=== PATIENT | female | born 1980 | race Caucasian/White ===

== ENCOUNTER 2017-04-03 15:49 | Emergency (ER) | payer MEDICAID ==
[2017-04-03] MEDS ORDERED: IBUPROFEN 800 MG TABLET PO ONE (17:21)
[2017-04-03] MEDS ORDERED: CEPHALEXIN 500 MG CAPSULE PO ONE (17:21)
--- NOTE | 2017-04-03 17:27 | ER Document Report ---
ED Extremity Problem, Lower - General Chief Complaint: Toe Injury Stated Complaint: RIGHT PINKI TOE PAIN Time Seen by Provider: 04/03/17 17:11 Mode of Arrival: Ambulatory Information source: Patient Notes: 36-year-old female presents to ED for pain in his right fifth toe for the last 1 -1/2 weeks. She states she was clipping her toenail and the pain has been since then. She has mild redness no drainage to the toe. We'll x-ray the toe to make sure there is no internal infection and treated with antibiotics and ibuprofen. TRAVEL OUTSIDE OF THE [place] IN LAST 30 DAYS: No - HPI Patient complains to provider of: Injury, Pain, Swelling Location: 5th Toe - Right Occurred: Other - 1-1/2 weeks Where: Home Onset/Duration: Persistent Quality of pain: Sharp Severity: Moderate Pain Level: 4 Context: Other - Clipping toe Recent injury: Possibly Associated symptoms: Painful ambulation Exacerbated by: Movement, Walking Relieved by: Nothing - Related Data Allergies/Adverse Reactions: No Known Allergies Allergy (Verified 12/18/14 09:16) Past Medical History - General Information source: Patient - Social History Smoking Status: Never Smoker Frequency of alcohol use: None Drug Abuse: None Occupation: [employer] Lives with: Family Family History: CAD, DM, Hypertension, Malignancy Patient has suicidal ideation: No Patient has homicidal ideation: No - Past Medical History Cardiac Medical History: Reports: None Pulmonary Medical History: Reports: Hx Asthma EENT Medical History: Reports: None Neurological Medical History: Reports: Hx Migraine Endocrine Medical History: Reports: None Renal/ Medical History: Reports: None Malignancy Medical History: Reports: None GI Medical History: Reports: None Musculoskeltal Medical History: Reports Hx Musculoskeletal Deformity, Reports Hx Musculoskeletal Trauma Skin Medical History: Reports None Psychiatric Medical History: Reports: None Traumatic Medical History: Reports: Hx Fractures - Both feet elbow knee Infectious Medical History: Reports: None Past Surgical History: Reports: Hx Oral Surgery, Hx Tubal Ligation - Clamped - Immunizations Immunizations up to date: Yes Hx Diphtheria, Pertussis, Tetanus Vaccination: Yes - 02/11/13 Review of Systems - Review of Systems Constitutional: No symptoms reported EENT: No symptoms reported Cardiovascular: No symptoms reported Respiratory: No symptoms reported Gastrointestinal: No symptoms reported Genitourinary: No symptoms reported Female Genitourinary: No symptoms reported Musculoskeletal: Other - Right fifth toe Skin: Other - Erythema to right fifth toe Hematologic/Lymphatic: No symptoms reported Neurological/Psychological: No symptoms reported -: Yes All other systems reviewed and negative Physical Exam - Vital signs Vitals: Temp Pulse Resp BP Pulse Ox 98.2 F 73 18 135/73 H 100 04/03/17 15:53 04/03/17 15:53 04/03/17 15:53 04/03/17 15:53 04/03/17 15:53 Interpretation: Normal - General General appearance: Appears well, Alert - HEENT Head: Normocephalic, Atraumatic Eyes: Normal Pupils: PERRL - Respiratory Respiratory status: No respiratory distress Chest status: Nontender Breath sounds: Normal Chest palpation: Normal - Cardiovascular Rhythm: Regular Heart sounds: Normal auscultation Murmur: No - Abdominal Inspection: Normal Distension: No distension Bowel sounds: Normal Tenderness: Nontender Organomegaly: No organomegaly - Back Back: Normal, Nontender - Extremities General upper extremity: Normal inspection, Nontender, Normal color, Normal ROM , Normal temperature General lower extremity: Normal ROM, Normal temperature, Normal weight bearing. No: Kristine's sign Foot: Tender - Right fifth toe, Edema - Right fifth toe, Other - Right fifth toe Erythema - Neurological Neuro grossly intact: Yes Cognition: Normal Orientation: AAOx4 Katie Coma Scale Eye Opening: Spontaneous [place] Coma Scale Verbal: Oriented Katie Coma Scale Motor: Obeys Commands Katie Coma Scale Total: 15 Speech: Normal Motor strength normal: LUE, RUE, LLE, RLE Sensory: Normal - Psychological Associated symptoms: Normal affect, Normal mood - Skin Skin Temperature: Warm Skin Moisture: Dry Skin Color: Normal Course - Vital Signs Vital signs: Temp Pulse Resp BP Pulse Ox 98.4 F 86 16 128/76 H 98 04/03/17 20:00 04/03/17 20:00 04/03/17 20:00 04/03/17 20:00 04/03/17 20:00 - Diagnostic Test Radiology reviewed: Image reviewed, Reports reviewed Discharge - Discharge Clinical Impression: pain in right 5th toe Condition: Stable Disposition: HOME, SELF-CARE Instructions: Family Physicians / Practices Additional Instructions: You came in for pain in your right fifth toe with some redness and swelling. You state you're toe has been hurting for a week and a half after cutting your nails. There is no drainage noted at this time. You will be started on Keflex which is the antibiotic you'll be encouraged to soak Foot in Epsom salt. You' ll also need to follow-up with a reservoir engineering manager which is a foot doctor if the pain continues. SOAP CLEANSING: Gently wash the wound daily using a mild soap (like Ivory, Phisoderm, Neutrogena). Use warm water, rubbing gently until all debris, ooze, and crusting have been washed from the wound. Allow to dry briefly (about 10 minutes) after cleaning. Repeat this cleansing at least three times a day for the first two days and then once or twice a day. ANTIBIOTIC OINTMENT PROTECTION: Your wounds are such that dressing them is not practical or optional. After cleansing, you should apply a thin coating of antibiotic ointment ( Bacitracin, not Neosporin) to the wounds at least three times daily. This lessens infection risk, and may decrease the amount of scarring. Use a q-tip or dull butter knife, not your finger, to apply this ointment. Any debris or ooze which builds up in the ointment should be gently rubbed off with a sterile gauze pad. Harder crusting may need to be gently scrubbed off with a clean wash cloth with soap and warm water, perhaps applying a warm, wet wash cloth to the wound for ten minutes first. Development of redness, severe itching, or blistering may mean allergy to the ointment. See the doctor. Cephalexin The antibiotic you've been prescribed is a member of the cephalosporin class. This type of antibiotic covers a wide variety of infections, including those of the skin, lungs, and urinary tract. It's useful for staph infections. This antibiotic is slightly similar to the penicillin family. In rare cases , a person who is allergic to penicillin will also be allergic to this medication. If you have had a severe allergic reaction to penicillin, and have not taken this antibiotic since that time, notify your doctor. Antibiotics which cover many germs ("broad spectrum" antibiotics) are more likely to cause diarrhea or "yeast" infections. Women prone to vaginal yeast problems may suffer an attack after taking this antibiotic. In infants, oral thrush (white spots "stuck" on the cheek) or yeast diaper rash may result. See your doctor if these problems occur. Call at once if you develop itching, hives , shortness of breath, or lightheadedness. Epsom Salt Soaks Soak the wound area in a container of warm epsom salt water. If you can't get the wound area into a bucket or rodriguez, use a folded towel soaked in the epsom salt solution and apply to the area. Use clean hot tap water (about the temperature of a very warm bath), mixing in about one (1) teaspoon for every pint of water. Two gallon --> 16 teaspoons Epsom Salts One gallon --> 8 teaspoons Epsom Salts Two quarts --> 4 teaspoons Epsom Salts One quart --> 2 teaspoons Epsom Salts Soak the wound for about 20 minutes while gently moving it around in the water. Repeat this four (4) times a day. FOLLOW-UP CARE: If you have been referred to a physician for follow-up care, call the physician s office for an appointment as you were instructed or within the next two days. If you experience worsening or a significant change in your symptoms, notify the physician immediately or return to the Emergency Department at any time for re-evaluation. Prescriptions: Cephalexin Monohydrate [Keflex 500 mg Capsule] 500 mg PO QID #20 capsule Forms: Elevated Blood Pressure, Return to Work
[2017-04-03 20:01] VITALS: BP 128/76
== END 2017-04-03 20:00 | disposition home or self-care (01) ==
LOC: ER 15:49
DX: S99.921A Unspecified injury of right foot, initial encounter (principal); M79.674 Pain in right toe(s); X58.XXXA Exposure to other specified factors, initial encounter
CPT/HCPCS: 99283

== ENCOUNTER 2017-05-03 14:13 | Emergency (ER) | payer SELFPAY ==
[2017-05-03 14:52] VITALS: BP 147/79
--- NOTE | 2017-05-03 15:39 | ER Document Report ---
HPI - HPI Patient complains to provider of: Itchy rash for 3 days Onset: Other - 3 days Onset/Duration: Gradual, Worse Pain Level: 2 Context: 36-year-old female complaining of a pruritic rash that is spreading over the past 3 days. No fever or chills. Unknown exposures. No tick bite. No travel outside the [place] Associated Symptoms: None Exacerbated by: Denies Relieved by: Denies Similar symptoms previously: No Recently seen / treated by doctor: No - ROS ROS below otherwise negative: Yes Systems Reviewed and Negative: Yes All other systems reviewed and negative - REPRODUCTIVE LMP: 04/16/17 Reproductive: DENIES: : Past Medical History - General Information source: Patient - Social History Smoking Status: Unknown if Ever Smoked Frequency of alcohol use: None Drug Abuse: None Lives with: Family Family History: CAD, DM, Hypertension, Malignancy Patient has suicidal ideation: No Patient has homicidal ideation: No Pulmonary Medical History: Reports: Hx Asthma Neurological Medical History: Reports: Hx Migraine Renal/ Medical History: Denies: Hx Peritoneal Dialysis Musculoskeltal Medical History: Reports Hx Musculoskeletal Deformity, Reports Hx Musculoskeletal Trauma Traumatic Medical History: Reports: Hx Fractures - Both feet elbow knee Past Surgical History: Reports: Hx Oral Surgery, Hx Tubal Ligation - Clamped - Immunizations Immunizations up to date: Yes Hx Diphtheria, Pertussis, Tetanus Vaccination: Yes - 02/11/13 Vertical Provider Document - CONSTITUTIONAL Agree With Documented VS: Yes Exam Limitations: No Limitations General Appearance: No Apparent Distress - INFECTION CONTROL TRAVEL OUTSIDE OF THE [place] IN LAST 30 DAYS: No - HEENT HEENT: Normocephalic - NECK Neck: Supple - RESPIRATORY Respiratory: Breath Sounds Normal, No Respiratory Distress O2 Sat by Pulse Oximetry: 100 - CARDIOVASCULAR Cardiovascular: Regular Rate, Regular Rhythm - NEURO Level of Consciousness: Awake, Alert, Appropriate - DERM Integumentary: Rash - Inflamed papular and scalingnred rash on the waist, axilla , Course - Vital Signs Vital signs: Temp Pulse Resp BP Pulse Ox 98.3 F 83 18 147/79 H 100 05/03/17 14:51 05/03/17 14:51 05/03/17 14:51 05/03/17 14:51 05/03/17 14:51 Discharge - Discharge Clinical Impression: Dermatitis Condition: Good Disposition: HOME, SELF-CARE Instructions: Corticosteroid Medication ([facility]), Atopic Dermatitis (Eczema) ([facility]) Additional Instructions: shower, while skin is still wet, apply Aquaphor ointment to cover the skin aND TRAP IN THE MOISTURE continue benadryl for the itching dove unscented soap, scent and dye free detergent, no dryer sheet see server security administrator if persists Please complete the patient satisfaction survey if you get one, and return it.. If you do not receive a survey, then you can go to the [facility] website, [email or web address] and place your comments about your very good care. Thank you very much. It was a pleasure being your medical provider today. Prescriptions: Prednisone [Deltasone 10 mg Tablet] 10 mg PO ASDIR PRN #21 tablet PRN Reason: Referrals: BHARAT MCKEON, [ACTIVE STAFF] - Follow up as needed
== END 2017-05-03 16:24 | disposition home or self-care (01) ==
LOC: ER 14:13
DX: L30.9 Dermatitis, unspecified (principal); J45.909 Unspecified asthma, uncomplicated
CPT/HCPCS: 99282

== ENCOUNTER → 2018-04-26 | Outpatient (CLI) | payer MEDICAID ==
--- NOTE | 2018-04-26 13:31 | WOMENS IMAGING REPORT ---
EXAM DESCRIPTION: BILAT SCREENING MAMMO W/CAD COMPLETED DATE/TIME: 04/26/2018 8:09 am REASON FOR STUDY: Z12.31 SCREENING Z12.31 ENCNTR SCREEN MAMMOGRAM FOR MALIGNANT NEOPLASM OF ABBEY COMPARISON: 2008 TECHNIQUE: Standard craniocaudal and mediolateral oblique views of each breast recorded using digita l acquisition. LIMITATIONS: None. FINDINGS: No masses, calcifications or architectural distortion. No areas of suspicion. Read with the assistance of CAD. .[facility] - R2 Cenova Version 1.3 .[facility] - R2 Cenova Version 1.3 .[facility] - R2 Cenova Version 2.4 .[facility] [place] - R2 Cenova Version 2.4 .[facility] - R2 Pulp Tester Version 9.2 IMPRESSION: NORMAL MAMMOGRAM. BIRADS 1. BREAST DENSITY: b. There are scattered areas of fibroglandular density. BIRAD: 1 NEGATIVE RECOMMENDATION: ROUTINE SCREENING COMMENT: The patient has been notified of the results by letter per MQSA requirements. Additional no tification policies are in place for contacting patient with suspicious or incomplete findings. Quality ID #[id number]: The [employer] recommends an annual screening mammogram for women aged 40 years or over. This facility utilizes a reminder system to ensure that all patients receive reminder letters, and/or direct phone calls for appointments. This includes reminders for routine scr eening mammograms, diagnostic mammograms, or other Breast Imaging Interventions when appropriate. Th is patient will be placed in the appropriate reminder system. The [employer] (ACR) has developed recommendations for screening MRI of the breast s in certain patient populations, to be used in conjunction with mammography. Breast MRI surveillanc e may be appropriate for women with more than 20% lifetime risk of developing breast cancer as deter mined by genetic testing, significant family history of the disease, or history of mantle radiation f or Hodgkins Disease. ACR Practice Guidelines 2008. TECHNICAL DOCUMENTATION: FINDING NUMBER: (1) ASSESSMENT: (1) JOB ID: [id number] [employer]- All Rights Reserved Reading location - IP/workstation name: [email or web address]
== END ==
LOC: WI 08:24
PROVIDERS: ATTEND Nurse Practitioner Family
DX: Z12.31 Encounter for screening mammogram for malignant neoplasm of breast (principal)
CPT/HCPCS: 77067

== ENCOUNTER 2018-06-06 08:12 | Emergency (ER) | payer SELFPAY ==
--- NOTE | 2018-06-06 09:02 | ER Document Report ---
ED General - General Mode of Arrival: Ambulatory Information source: Patient TRAVEL OUTSIDE OF THE [place] IN LAST 30 DAYS: No <ANDREA SAMSON - Last Filed: 06/06/18 16:07> <JASPER LESTER - Last Filed: 06/06/18 18:05> - General Chief Complaint: Abdominal Pain Stated Complaint: BACK AND STOMACH PAIN Time Seen by Provider: 06/06/18 08:47 Notes: Patient is a 37 year old female presenting to the emergency department complaining of multiple symptoms abdominal pain, back pain, urinary retention, vaginal discharge and a rash. Patient states her abdominal pain is located across her lower abdomen and radiates into her back and further describes it has a cramping. She also states she has had heavy vaginal discharge further stating it feels like she is urinating on herself. Patient states she developed a rash 2 weeks ago describing it as itchy. She states she has been diagnosed with scabies 2x in the past and mentions no other family member linh the rash. 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 (ANDREA SAMSON) - Related Data Allergies/Adverse Reactions: No Known Allergies Allergy (Verified 06/06/18 09:01) Past Medical History - General Information source: Patient - Social History Smoking Status: Never Smoker Cigarette use (# per day): No Chew tobacco use (# tins/day): No Smoking Education Provided: No Frequency of alcohol use: None Family History: CAD, DM, Hypertension, Malignancy Pulmonary Medical History: Reports: Hx Asthma Neurological Medical History: Reports: Hx Migraine Musculoskeletal Medical History: Reports Hx Musculoskeletal Deformity, Reports Hx Musculoskeletal Trauma Traumatic Medical History: Reports: Hx Fractures - Both feet elbow knee Past Surgical History: Reports: Hx Oral Surgery, Hx Tubal Ligation - Clamped - Immunizations Immunizations up to date: Yes Hx Diphtheria, Pertussis, Tetanus Vaccination: Yes - 02/11/13 <ANDREA SAMSON - Last Filed: 06/06/18 16:07> Review of Systems - Review of Systems Constitutional: No symptoms reported EENT: No symptoms reported Cardiovascular: No symptoms reported Respiratory: No symptoms reported Gastrointestinal: See HPI, Abdominal pain Genitourinary: See HPI, Discharge, Retention Female Genitourinary: No symptoms reported Musculoskeletal: No symptoms reported Skin: See HPI, Rash Hematologic/Lymphatic: No symptoms reported Neurological/Psychological: No symptoms reported -: Yes All other systems reviewed and negative <MALIFARIBASANDEEP - Last Filed: 06/06/18 16:07> Physical Exam <MALI,TAMSANDEEP - Last Filed: 06/06/18 16:07> <JASPER LESTER - Last Filed: 06/06/18 18:05> - Vital signs Vitals: Temp Pulse Resp BP Pulse Ox 97.6 F 87 18 139/99 H 99 06/06/18 08:17 06/06/18 08:17 06/06/18 08:17 06/06/18 08:17 06/06/18 08:17 - Notes Notes: GENERAL: Alert, interacts well. No acute distress. HEAD: Normocephalic, atraumatic. EYES: Pupils equal, round, and reactive to light. Extraocular movements intact. ENT: Oral mucosa moist, tongue midline. NECK: Full range of motion. Supple. Trachea midline. LUNGS: Clear to auscultation bilaterally, no wheezes, rales, or rhonchi. No respiratory distress. HEART: Regular rate and rhythm. No murmurs, gallops, or rubs. ABDOMEN: Soft, lower abdominal tenderness to palpation. Non-distended. Bowel sounds present in all 4 quadrants. EXTREMITIES: Moves all 4 extremities spontaneously. No edema, radial and dorsalis pedis pulses 2/4 bilaterally. No cyanosis. NEUROLOGICAL: Alert and oriented x3. Normal speech. PSYCH: Normal affect, normal mood. SKIN: Warm, dry, normal turgor. First-degree sunburn across the anterior aspect of abdomen and bilateral thighs. Excoriation rash across the BUE, BLE and underneath her breasts. PELVIC: Thick white discharge from cervical os. Cervical motion tenderness to palpation. (ANDREA SAMSON) Course - Laboratory Result Diagrams: 06/06/18 09:27 06/06/18 09:27 <ANDREA SAMSON - Last Filed: 06/06/18 16:07> - Laboratory Result Diagrams: 06/06/18 09:27 06/06/18 09:27 <JASPER LESTER - Last Filed: 06/06/18 18:05> - Re-evaluation Re-evalutation: 06/06/18 12:20 CBC unremarkable, CMP unremarkable, urinalysis unremarkable, GC and Chlamydia negative, abdominal exam pelvic exam consistent with PID, wet prep also concerning for bacterial vaginosis, patient will be treated with doxycycline and Flagyl. Rash consistent with scabies, will be treated with permethrin. Discharge to home. (JASPER LESTER) - Vital Signs Vital signs: Temp Pulse Resp BP Pulse Ox 99.3 F 82 16 125/73 100 06/06/18 12:33 06/06/18 12:33 06/06/18 12:33 06/06/18 12:33 06/06/18 12:33 - Laboratory Laboratory results interpreted by me: 06/06/18 06/06/18 06/06/18 09:27 09:27 09:27 Lymphocytes % 10.1 L Glucose 113 H Urine Urobilinogen 2.0 H Discharge <ANDREA SAMSON - Last Filed: 06/06/18 16:07> <JASPER LESTER - Last Filed: 06/06/18 18:05> - Discharge Clinical Impression: PID (acute pelvic inflammatory disease), Bacterial vaginosis, Scabies Condition: Stable Disposition: HOME, SELF-CARE Additional Instructions: Scabies Your exam suggests the presence of scabies, which are microscopic parasites of the skin. These mites gabbie through the skin, causing severe itching. The mite can be spread to other persons by skin contact. All clothing, towels, and bedding should be washed in very hot water, set aside for a week, then washed again. You should apply scabies-killing lotion from the neck down, then wash it off after 12 hours. You may need medication for itching, as the itch persists for many days after the mites have been killed. All family members and close personal contacts should be examined. Repeat treatment may be necessary if the infestation is not eliminated with a single treatment. Call the doctor if you develop increasing swelling and redness, red streaks , tender lumps, fever, or drainage from a skin sore. Pelvic Inflammatory Disease You have been diagnosed as having pelvic inflammatory disease (PID). This is an infection of the fallopian tubes and surrounding areas of the pelvis. Symptoms are usually pelvic pain and discharge. The infection can do permanent damage to the tubes and ovaries. It should be taken very seriously. Treatment is antibiotics, which may be given by vein or by injection if the infection seems serious. It's important that you receive all recommended medication. Condoms help prevent spread of this infection to others. You do not have gonorrhea or chlamydia. Call the doctor or return at once if you develop increasing fever, rash, severe pelvic pain, vaginal bleeding (other than your period), or problems with your bladder or bowels. Vaginosis, Bacterial Your exam shows you have bacterial vaginosis. This condition is due to an overgrowth of bacteria in the vagina. Symptoms may include vaginal itching or pain, a smelly discharge, and sometimes burning with urination. Normally this is not transmitted by sexual contact. Vaginosis can be treated with oral or topical antibiotics. Metronidazole ( Flagyl) pills are usually effective. Topical vaginal creams include Cleocin and Metro-Gel. You should avoid sexual contact until your symptoms are all better. Call the doctor if you develop pelvic pain, fever, or problems with urination, or if you don't improve as expected. Prescriptions: Doxycycline Hyclate 100 mg PO BID #28 capsule Metronidazole [Flagyl 500 mg Tablet] 500 mg PO BID #28 tablet Permethrin [Acticin 5% Cream 60 gm] 1 applic TP ASDIR PRN #2 tube PRN Reason: Forms: Return to Work Scribe Attestation: 06/06/18 18:05 I personally performed the services described in the documentation, reviewed and edited the documentation which was dictated to the scribe in my presence, and it accurately records my words and actions. (JASPER LESTER) Scribe Documentation - Scribe Written by Wayne:: Wayne Busch, 06/06/2018 09:26 acting as scribe for :: Phan <ANDREA SAMSON - Last Filed: 06/06/18 16:07>
[2018-06-06 09:51] LABS: ABSOLUTE EOSINOPHILS # (AUTO) 0.5 10^3/uL (0.0-0.6); ABSOLUTE LYMPHOCYTES (AUTO) 0.9 10^3/uL (0.5-4.7); ABSOLUTE MONOCYTES (AUTO) 0.6 10^3/uL (0.1-1.4); ABSOLUTE NEUT (AUTO) 6.8 10^3/uL (1.7-8.2); BASOPHILS % (AUTO) 0.2 % (0-2); EOSINOPHILS % (AUTO) 5.5 % (0-6); HEMATOCRIT 43.3 % (36.0-47.0); LYMPHOCYTES % (AUTO) 10.1 % (13-45); MEAN CORPUSCULAR HEMOGLOBIN 30.3 pg (27.0-33.4); MEAN CORPUSCULAR HGB CONC 34.5 g/dL (32.0-36.0); MEAN CORPUSCULAR VOLUME 88 fl (80-97); PLATELET COUNT 210 10^3/uL (150-450); RED BLOOD COUNT 4.94 10^6/uL (3.72-5.28); RED CELL DISTRIBUTION WIDTH 13.9 % (11.5-14.0); SEGMENTED NEUTROPHILS % (AUTO) 77.2 % (42-78); TOTAL CELLS COUNTED % (AUTO) 100 %; WHITE BLOOD COUNT 8.8 10^3/uL (4.0-10.5)
[2018-06-06 10:04] LABS: ALANINE AMINOTRANSFERASE 26 U/L (9-52); ALBUMIN 4.3 g/dL (3.5-5.0); ALKALINE PHOSPHATASE 50 U/L (38-126); ANION GAP 12 (5-19); ASPARTATE AMINO TRANSFERASE 21 U/L (14-36); BILIRUBIN,DIRECT 0.3 mg/dL (0.0-0.4); BLOOD UREA NITROGEN 12 mg/dL (7-20); CALCIUM 9.6 mg/dL (8.4-10.2); CARBON DIOXIDE 27 mmol/L (22-30); CHLORIDE 105 mmol/L (98-107); GLUCOSE 113 mg/dL (75-110); SODIUM 143.6 mmol/L (137-145); TOTAL PROTEIN 7.3 g/dL (6.3-8.2)
[2018-06-06 10:06] LABS: APPEARANCE,URINE SLIGHTLY-CLOUDY; BILIRUBIN,URINE NEGATIVE (NEGATIVE); COLOR,URINE YELLOW; GLUCOSE, URINE NEGATIVE (NEGATIVE); KETONES,URINE NEGATIVE (NEGATIVE); LEUKOCYTE ESTERASE,URINE NEGATIVE (NEGATIVE); NITRITE,URINE NEGATIVE (NEGATIVE); PROTEIN,URINE NEGATIVE (NEGATIVE); URINE SPECIFIC GRAVITY 1.017
[2018-06-06 10:36] LABS: T.VAGINALIS (WET MOUNT) NO TRICHOMONAS SEEN; WBCS (WET MOUNT) 2+ WBCS SEEN; YEAST (WET MOUNT) NO YEAST SEEN
[2018-06-06 10:37] LABS: BACTERIA (WET MOUNT) 4+ BACTERIA SEEN; EPITHELIALS (WET MOUNT) 3+ EPITHELIALS SEEN
[2018-06-06 11:57] LABS: CHLAM PCR NOT DETECTED (NOT DETECT); GON PCR NOT DETECTED (NOT DETECT)
[2018-06-06] MEDS ORDERED: METRONIDAZOLE 500 MG TABLET PO ONE (12:19)
[2018-06-06] MEDS ORDERED: DOXYCYCLINE HYCLATE 100 MG TABLET PO ONE (12:19)
[2018-06-06 12:34] VITALS: BP 125/73
== END 2018-06-06 12:50 | disposition home or self-care (01) ==
LOC: ER 08:12
DX: N73.9 Female pelvic inflammatory disease, unspecified (principal); N76.0 Acute vaginitis; B96.89 Other specified bacterial agents as the cause of diseases classified elsewhere; B86 Scabies; R10.30 Lower abdominal pain, unspecified; R33.9 Retention of urine, unspecified; L55.0 Sunburn of first degree; J45.909 Unspecified asthma, uncomplicated; Z98.51 Tubal ligation status
CPT/HCPCS: 36415; 80053; 81001; 85025; 87210; 87491; 87591; 99284

== ENCOUNTER → 2018-11-07 | Outpatient (CLI) | payer MEDICAID ==
--- NOTE | 2018-11-07 14:16 | RADIOLOGY REPORT (SQ) ---
EXAM DESCRIPTION: KUB COMPLETED DATE/TIME: 11/07/2018 1:45 pm REASON FOR STUDY: GENERALIZED ABD. PAIN R10.84 GENERALIZED ABDOMINAL PAIN COMPARISON: None. NUMBER OF VIEWS: One view. TECHNIQUE: Supine radiographic image of the abdomen acquired. LIMITATIONS: None. FINDINGS: BOWEL GAS PATTERN: Normal bowel gas pattern. No dilated loops. CALCIFICATIONS: No suspicious calcifications. SOFT TISSUES: No gross mass or suggestion of organomegaly. HARDWARE: Surgical clips related to bilateral tubal ligations are identified in the pelvis. BONES: No acute fracture. No worrisome bone lesions. OTHER: No other significant finding. IMPRESSION: NO RADIOGRAPHIC EVIDENCE FOR ACUTE ABDOMINAL DISEASE. TECHNICAL DOCUMENTATION: JOB ID: [id number] [employer]- All Rights Reserved Reading location - IP/workstation name: [email or web address]
== END ==
LOC: OD 13:33
PROVIDERS: ATTEND Physician Assistant
DX: R10.84 Generalized abdominal pain (principal)
CPT/HCPCS: 74018

== ENCOUNTER → 2018-11-17 | Outpatient (CLI) | payer MEDICAID ==
--- NOTE | 2018-11-17 10:07 | WOMENS IMAGING REPORT ---
EXAM DESCRIPTION: TRANSVAGINAL ULTRASOUND COMPLETED DATE/TIME: 11/17/2018 8:13 am REASON FOR STUDY: R10.2 PELVIC AND PERINEAL PAIN R10.2 PELVIC AND PERINEAL PAIN COMPARISON: None. TECHNIQUE: Dynamic and static grayscale images acquired of the pelvis via transvaginal approach and recorded on PACS. Additional selected color Doppler and spectral images recorded. LIMITATIONS: None. FINDINGS: UTERUS: Contour normal. No mass. ENDOMETRIAL STRIPE: No focal or generalized thickening. No masses. CERVIX: No nabothian cysts. RIGHT OVARY AND DOPPLER: Normal size. 1.5 cm cyst or dominant follicle. No worrisome masses. Normal arterial vascular flow without evidence for torsion. LEFT OVARY AND DOPPLER: Normal size. 1.6 cm hypoechoic lesion with internal echoes. Similar size si mple appearing cyst. Normal arterial vascular flow without evidence for torsion. FREE FLUID: None noted. OTHER: No other significant finding. MEASUREMENTS: UTERUS: 9.3 x 5.3 x 6.2 cm ENDOMETRIAL STRIPE: 11 mm RIGHT OVARY: 3.4 x 2.0 x 2.2 cm LEFT OVARY: 3.9 x 3.7 x 3.2 cm IMPRESSION: Complex cyst left ovary, probably hemorrhagic cyst. TECHNICAL DOCUMENTATION: JOB ID: [id number] [employer]- All Rights Reserved Reading location - IP/workstation name: [email or web address]
== END ==
LOC: WI 07:39
PROVIDERS: ATTEND Physician Assistant
DX: R10.2 Pelvic and perineal pain (principal)
CPT/HCPCS: 76830

== ENCOUNTER 2019-03-09 06:10 | Day surgery (SDC) | payer MEDICAID ==
[2019-03-02 09:36] LABS: HEMATOCRIT 38.7 % (36.0-47.0); HEMOGLOBIN 13.2 g/dL (12.0-15.5); MEAN CORPUSCULAR HEMOGLOBIN 29.4 pg (27.0-33.4); MEAN CORPUSCULAR HGB CONC 34.2 g/dL (32.0-36.0); MEAN CORPUSCULAR VOLUME 86 fl (80-97); PLATELET COUNT 227 10^3/uL (150-450); RED CELL DISTRIBUTION WIDTH 13.5 % (11.5-14.0); WHITE BLOOD COUNT 7.3 10^3/uL (4.0-10.5)
[2019-03-02 09:58] LABS: ALANINE AMINOTRANSFERASE 22 U/L (9-52); ALBUMIN 3.8 g/dL (3.5-5.0); ALKALINE PHOSPHATASE 53 U/L (38-126); ANION GAP 9 (5-19); ASPARTATE AMINO TRANSFERASE 15 U/L (14-36); BILIRUBIN,DIRECT 0.2 mg/dL (0.0-0.4); BILIRUBIN,TOTAL 0.4 mg/dL (0.2-1.3); BLOOD UREA NITROGEN 15 mg/dL (7-20); CALCIUM 9.3 mg/dL (8.4-10.2); CARBON DIOXIDE 26 mmol/L (22-30); CHLORIDE 104 mmol/L (98-107); GLUCOSE 94 mg/dL (75-110); POTASSIUM 4.2 mmol/L (3.6-5.0); SODIUM 138.7 mmol/L (137-145); TOTAL PROTEIN 6.5 g/dL (6.3-8.2)
--- NOTE | 2019-03-02 11:02 | EKG REPORT ---
SEVERITY:- BORDERLINE ECG - SINUS RHYTHM CONSIDER ANTERIOR INFARCT : Confirmed by: Jim Winkler 02-Mar-2019 11:01:11
--- NOTE | 2019-03-02 12:05 | RADIOLOGY REPORT (SQ) ---
EXAM DESCRIPTION: CHEST PA/LATERAL COMPLETED DATE/TIME: 03/02/2019 10:09 am REASON FOR STUDY: PRE-OP COMPARISON: None. EXAM PARAMETERS: NUMBER OF VIEWS: two views TECHNIQUE: Digital Frontal and Lateral radiographic views of the chest acquired. RADIATION DOSE: NA LIMITATIONS: none FINDINGS: LUNGS AND PLEURA: No opacities, masses or pneumothorax. No pleural effusion. MEDIASTINUM AND HILAR STRUCTURES: No masses or contour abnormalities. HEART AND VASCULAR STRUCTURES: Heart normal size. No evidence for failure. BONES: No acute findings. HARDWARE: None in the chest. OTHER: No other significant finding. IMPRESSION: NO SIGNIFICANT RADIOGRAPHIC FINDING IN THE CHEST. TECHNICAL DOCUMENTATION: JOB ID: [id number] [employer]- All Rights Reserved Reading location - IP/workstation name: [email or web address]
[2019-03-02 15:43] LABS: APPEARANCE,URINE CLEAR; BILIRUBIN,URINE NEGATIVE (NEGATIVE); COLOR,URINE YELLOW; GLUCOSE, URINE NEGATIVE (NEGATIVE); KETONES,URINE NEGATIVE (NEGATIVE); LEUKOCYTE ESTERASE,URINE NEGATIVE (NEGATIVE); NITRITE,URINE NEGATIVE (NEGATIVE); PROTEIN,URINE NEGATIVE (NEGATIVE); URINE SPECIFIC GRAVITY 1.017; UROBILINOGEN,URINE NEGATIVE mg/dL (<2.0)
[~2019-03-09 06:10] MED LIST: CEFAZOLIN 1 GM/D5W RTU 1 GM/50 ML RTUPB IV ONE; CEFAZOLIN 1 GM/D5W RTU 1 GM/50 ML RTUPB IV SCH; LACTATED RINGERS 1000 ML IV PRN; LIDOCAINE 0.5% INJ-PF (5 MG/ML) 50 ML SDV SUBCUT PRN
[2019-03-09] MEDS ORDERED: DEXAMETHASONE SOD PHOSPHATE INJ 4 MG/1 ML VIAL ONE (07:56)
[2019-03-09] MEDS ORDERED: MIDAZOLAM 2 MG/2 ML INJ ONE (07:56)
[2019-03-09] MEDS ORDERED: FENTANYL CITRATE INJ/PF 250 MCG/5 ML AMPULE ONE (07:56)
[2019-03-09] MEDS ORDERED: ONDANSETRON HCL INJ/PF 4 MG/2 ML SDV ONE (07:56)
[2019-03-09] MEDS ORDERED: PROPOFOL INJ 200 MG/20 ML VIAL IV ONE (07:57)
[2019-03-09] MEDS ORDERED: MORPHINE SULFATE 10 MG/ML INJ ONE (07:57)
[2019-03-09] MEDS ORDERED: ACETAMINOPHEN 1,000 MG/100 ML RTUPB IV ONE (07:57)
[2019-03-09] MEDS ORDERED: BUPIVACAINE HCL 0.25 % INJ/PF (2.5 MG/1 ML) 30 ML VIAL ONE (08:07)
[2019-03-09] MEDS ORDERED: DIPHENHYDRAMINE HCL 50 MG/ML VIAL IV PRN (09:01)
[2019-03-09] MEDS ORDERED: FENTANYL CITRATE INJ/PF 100 MCG/2 ML AMPUL IV PRN ×3 (09:01)
[2019-03-09] MEDS ORDERED: MEPERIDINE HCL/PF INJ 25 MG/1 ML DISP.SYRIN IV PRN (09:01)
[2019-03-09] MEDS ORDERED: MORPHINE SULFATE 10 MG/ML INJ IV PRN (09:01)
[2019-03-09] MEDS ORDERED: PROMETHAZINE HCL INJ 25 MG/1 ML VIAL IV PRN ×2 (09:01)
[2019-03-09] MEDS: FENTANYL CITRATE INJ/PF 100 MCG/2 ML AMPUL ONE ×2 (10:15→10:20)
--- NOTE | 2019-03-09 10:24 | OPERATIVE REPORT E ---
Operative Report NAME: GAIL JEROME : 1980 AGE: 38Y DATE OF SURGERY: 03/09/2019 ROOM: PREOPERATIVE DIAGNOSIS: Dysmenorrhea and menorrhagia. POSTOPERATIVE DIAGNOSIS: Dysmenorrhea and menorrhagia. PROCEDURE: LAVH, bilateral salpingectomy. SURGEON: Chandler BEAULIEU M.D. ESTIMATED BLOOD LOSS: Less than 100 mL. TISSUE REMOVED OR ALTERED: Uterus and tubes. ANESTHESIA: General. DESCRIPTION OF PROCEDURE: The patient was placed in the dorsal lithotomy position, prepped and draped in sterile fashion. Speculum was placed. Cervix was visualized and grasped with a single-tooth tenaculum. A Hulka tenaculum was placed. Single-tooth tenaculum was removed. Attention was directed to the abdomen where a subumbilical midline incision was made. Trocar was introduced with insufflation of the abdomen. The trocar was introduced with visualization of the tubes, uterus, and ovaries. There was evidence of prior Filshie clip applications. Second puncture was made lateral to the first on the left and the third suprapubically. Using the Harmonic scalpel, the left tube was removed along the mesosalpinx. This was continued down the broad ligament to the ascending branch of the uterine artery on the left. Procedure was repeated on the right. The abdomen was deflated and attention was turned to the pelvis. Single-tooth tenaculum was removed and cervix grasped with a Oli thyroid clamp. Posterior cul-de-sac was entered with sharp incision, posterior parietal peritoneum was sutured, posterior pelvic with 2-0 Vicryl. Left uterosacral was clamped, divided, and sutured with 2-0 Vicryl. The procedure was repeated on the right. Cervix was sharply circumscribed. The anterior parietal peritoneum was entered with sharp dissection. Serial clamps were used on each of the uterus, each pedicle being divided and sutured with 2-0 Vicryl. The cervix was inspected. Hemostasis was noted. The cuff was closed with [id number] sutures of 2-0 Vicryl. Abdomen was reinflated and pelvis irrigated with normal saline. Hemostasis was noted. The laparoscope and instruments were removed. The abdomen deflated trocar sleeves removed. The subumbilical incision was closed with 0 Vicryl for the fascia and 4-0 for the subcu and the 2 punctures were closed with subcu 4-0 Vicryl. All counts were correct. She tolerated well and was taken to recovery in good condition. Urine remained clear throughout the procedure. DICTATING PHYSICIAN: Chandler BEAULIEU M.D. [id number] PHY#: [id number] ID: [id number] JOB#: [id number] ACCT: [id number] cc:Chandler BEAULIEU M.D. >
[2019-03-09] MEDS ORDERED: OXYCODONE-ACETAMINOPHEN 5-325 MG TABLET PO PRN (10:35)
[2019-03-09] MEDS ORDERED: ONDANSETRON HCL INJ/PF 4 MG/2 ML SDV IV PRN (10:36)
[2019-03-09] MEDS ORDERED: IBUPROFEN 800 MG TABLET PO SCH (14:00)
[2019-03-09] MEDS ORDERED: ROCURONIUM BROMIDE INJ 50 MG/5 ML VIAL IV ONE (14:14)
[2019-03-09] MEDS ORDERED: ONDANSETRON 4 MG TAB.RAPDIS ONE (14:18)
[2019-03-09 16:46] VITALS: BP 125/76
== END 2019-03-09 17:10 | disposition home or self-care (01) ==
LOC: OROUT 06:10 → 2S 11:05 → OROUT 17:10
PROVIDERS: ATTEND Obstetrics & Gynecology Gynecology
DX: N92.1 Excessive and frequent menstruation with irregular cycle (principal); N94.6 Dysmenorrhea, unspecified; N72 Inflammatory disease of cervix uteri; N83.8 Other noninflammatory disorders of ovary, fallopian tube and broad ligament; I10 Essential (primary) hypertension; J45.909 Unspecified asthma, uncomplicated; Z79.899 Other long term (current) drug therapy
CPT/HCPCS: 36415; 71046; 80053; 81001; 840; 84132; 84703; 85027; 86850; 86900; 86901; 88307; 93005; 93010; J0131; J0690; J1100; J2250; J2270; J2405; J2704; J3010; J3490; S0119

== ENCOUNTER → 2019-08-21 | Outpatient (CLI) | payer MEDICAID ==
--- NOTE | 2019-08-22 08:37 | RADIOLOGY REPORT (SQ) ---
EXAM DESCRIPTION: KUB/ABDOMEN (SINGLE VIEW) COMPLETED DATE/TIME: 08/21/2019 7:33 pm REASON FOR STUDY: R10.30 LOWER ABDOMINAL PAIN, UNSPECIFIED R10.30 LOWER ABDOMINAL PAIN, UNSPECIFIED COMPARISON: 11/07/2018. NUMBER OF VIEWS: One view. TECHNIQUE: Supine radiographic image of the abdomen acquired. LIMITATIONS: None. FINDINGS: BOWEL GAS PATTERN: There is gas and fecal material within nondilated colon to the level of the rectum. There are no dilated loops of bowel or differential air-fluid levels. CALCIFICATIONS: No calcifications. SOFT TISSUES: No soft tissue abnormality. HARDWARE: Left tubal ligation clip in place; the right-sided clip has migrated. BONES: Findings of osteitis pubis. OTHER: No other finding. IMPRESSION: Nonobstructive bowel gas pattern. The patient has undergone prior tubal ligation ; the left-sided tubal ligation clip remains in place however the right-sided clip appears to have migrated . TECHNICAL DOCUMENTATION: JOB ID: [id number] [employer]- All Rights Reserved Reading location - IP/workstation name: [email or web address]
== END ==
LOC: RAD 18:55
PROVIDERS: ATTEND Physician Assistant
DX: R10.30 Lower abdominal pain, unspecified (principal); Z98.51 Tubal ligation status
CPT/HCPCS: 74018

== ENCOUNTER 2019-10-22 09:01 | Emergency (ER) | payer MEDICAID ==
[2019-10-22 09:05] VITALS: BP 137/81
[2019-10-22] MEDS ORDERED: PREDNISONE 20 MG TABLET PO ONE (09:28)
--- NOTE | 2019-10-22 09:31 | ER Document Report ---
ED Skin Rash/Insect Bite/Abscs - General Chief Complaint: Rash Stated Complaint: RASH Time Seen by Provider: 10/22/19 09:23 Primary Care Provider: JOSE MONTANO PA-C [Primary Care Provider] - Follow up as needed Mode of Arrival: Ambulatory Information source: Patient TRAVEL OUTSIDE OF THE [place] IN LAST 30 DAYS: No - HPI Patient complains to provider of: Skin rash/lesion Onset: Last week Onset/Duration: Gradual, Worse Quality of pain: Burning Severity: Moderate Pain Level: 2 Skin Character: Rash Quality of rash: Itchy, Burning Exacerbated by: Denies Relieved by: Denies Similar symptoms previously: Yes Recently seen / treated by doctor: No - Related Data Allergies/Adverse Reactions: No Known Allergies Allergy (Verified 10/22/19 09:20) Past Medical History - General Information source: Patient - Social History Smoking Status: Never Smoker Frequency of alcohol use: None Drug Abuse: None Lives with: Family Family History: CAD, DM, Hypertension, Malignancy - Past Medical History Cardiac Medical History: Reports: Hx Hypertension Denies: Hx Coronary Artery Disease, Hx Heart Attack Pulmonary Medical History: Reports: Hx Asthma - NO PROBLEMS OVER 16YRS Neurological Medical History: Reports: Hx Migraine Renal/ Medical History: Reports: None Malignancy Medical History: Reports: None GI Medical History: Reports: None Musculoskeletal Medical History: Reports Hx Musculoskeletal Deformity, Reports Hx Musculoskeletal Trauma Skin Medical History: Reports None Psychiatric Medical History: Reports: None Traumatic Medical History: Reports: Hx Fractures - Both feet elbow knee Past Surgical History: Reports: Hx Hysterectomy, Hx Oral Surgery, Hx Tubal Ligation - Immunizations Immunizations up to date: Yes Hx Diphtheria, Pertussis, Tetanus Vaccination: Yes Review of Systems - Review of Systems Constitutional: No symptoms reported EENT: No symptoms reported Cardiovascular: No symptoms reported Respiratory: No symptoms reported Gastrointestinal: No symptoms reported Genitourinary: No symptoms reported Female Genitourinary: No symptoms reported Musculoskeletal: No symptoms reported Skin: Rash Hematologic/Lymphatic: No symptoms reported Neurological/Psychological: No symptoms reported -: Yes All other systems reviewed and negative Physical Exam - Vital signs Vitals: Temp Pulse Resp BP Pulse Ox 97.6 F 79 18 137/81 H 98 10/22/19 09:04 10/22/19 09:04 10/22/19 09:04 10/22/19 09:04 10/22/19 09:04 Interpretation: Normal - General General appearance: Appears well, Alert - HEENT Head: Normocephalic, Atraumatic Eyes: Normal Pupils: PERRL - Respiratory Respiratory status: No respiratory distress Chest status: Nontender Breath sounds: Normal Chest palpation: Normal - Cardiovascular Rhythm: Regular Heart sounds: Normal auscultation Murmur: No - Abdominal Inspection: Normal Distension: No distension Bowel sounds: Normal Tenderness: Nontender Organomegaly: No organomegaly - Back Back: Normal, Nontender - Extremities General upper extremity: Normal inspection, Nontender, Normal color, Normal ROM, Normal temperature General lower extremity: Normal inspection, Nontender, Normal color, Normal ROM, Normal temperature, Normal weight bearing. No: Kristine's sign - Neurological Neuro grossly intact: Yes Cognition: Normal Orientation: AAOx4 [place] Coma Scale Eye Opening: Spontaneous [place] Coma Scale Verbal: Oriented [place] Coma Scale Motor: Obeys Commands [place] Coma Scale Total: 15 Speech: Normal Motor strength normal: LUE, RUE, LLE, RLE Sensory: Normal - Psychological Associated symptoms: Normal affect, Normal mood - Skin Skin Temperature: Warm Skin Moisture: Dry Skin Color: Normal Skin irregularity: Rash Location of irregularity: Generalized Character of irregularity: Maculopapular, Linear Irregularity with: Tenderness Course - Vital Signs Vital signs: Temp Pulse Resp BP Pulse Ox 97.6 F 79 18 137/81 H 98 10/22/19 09:04 10/22/19 09:04 10/22/19 09:04 10/22/19 09:04 10/22/19 09:04 Discharge - Discharge Clinical Impression: Scabies Condition: Stable Disposition: HOME, SELF-CARE Additional Instructions: Scabies Your exam suggests the presence of scabies, which are microscopic parasites of the skin. These mites gabbie through the skin, causing severe itching. The mite can be spread to other persons by skin contact. All clothing, towels, and bedding should be washed in very hot water, set aside for a week, then washed again. You should apply scabies-killing lotion from the neck down, then wash it off after 12 hours. You may need medication fo r itching, as the itch persists for many days after the mites have been killed. All family members and close personal contacts should be examined. Repeat treatment may be necessary if the infestation is not eliminated with a single treatment. Call the doctor if you develop increasing swelling and redness, red streaks, tender lumps, fever, or drainage from a skin sore. Acetaminophen Acetaminophen may be taken for pain relief or fever control. It's much safer than aspirin, offering a wider range of "safe" dosages. It is safe during . Some brand names are Tylenol, Panadol, Datril, Anacin 3, Tempra, and Liquiprin. Acetaminophen can be repeated every four hours. The following are maximum recommended dosages: WEIGHT Dose Drops Elixir Chewable(80mg) (LBS.) drprs=droppers tsp=teaspoon 6 40 mg .4 ml (1/2) 6-11 80 mg .8 ml (full) 1/2 tsp 1 tab 12-16 120 mg 1 1/2 drprs 3/4 tsp 1 1/2 tabs 17-23 160 mg 2 drprs 1 tsp 2 tabs 24-30 240 mg 3 drprs 1 1/2 tsp 3 tabs 30-35 320 mg 2 tsp 4 tabs 36-41 360 mg 2 1/4 tsp 4 1/2 tabs 42-47 400 mg 2 1/2 tsp 5 tabs 48-53 480 mg 3 tsp 6 tabs 54-59 520 mg 3 1/4 tsp 6 1/2 tabs 60-64 560 mg 3 1/2 tsp 7 tabs 65-70 600 mg 3 3/4 tsp 7 1/2 tabs 71-76 640 mg 4 tsp 8 tabs 77-82 720 mg 4 1/2 tsp 9 tabs 83-88 800 mg 5 tsp 10 tabs >89 pounds or adults 650 mg to 900 mg Acetaminophen can be repeated every four hours. Maximum daily dose not to exceed 4000 mg. These maximum recommended dosages are slightly higher than the dosages written on the product container, but these dosages are very safe and well below the toxic dosage for acetaminophen. Ibuprofen Ibuprofen is an excellent, safe drug for pain control. In addition, it has potent antiinflammatory effects which are beneficial, especially in the treatment of injuries, arthritis, or tendonitis. It's best to take ibuprofen with food. Persons with ulcer disease or allergy to aspirin should notify their physician of this before taking ibuprofen. Take the medication exactly as prescribed. Don't take additional doses unless instructed to do so by your doctor. If you develop wheezing, shortness of breath, hives, faintness, stomach pain, vomiting, or dark black stools, retu rn for re-evaluation at once. Ibuprofen Ibuprofen is an excellent, safe drug for pain control. In addition, it has potent antiinflammatory effects which are beneficial, especially in the treat ment of injuries, arthritis, or tendonitis. It's best to take ibuprofen with food. Persons with ulcer disease or allergy to aspirin should notify their physician of this before taking ibuprofen. Take the medication exactly as prescribed. Don't take additional doses unless instructed to do so by your doctor. If you develop wheezing, shortness of breath, hives, faintness, stomach pain, vomiting, or dark black stools, return for re-evaluation at once. FOLLOW-UP CARE: If you have been referred to a physician for follow-up care, call the physicians office for an appointment as you were instructed or within the next two days. If you experience worsening or a significant change in your symptoms, notify the physician immediately or return to the Emergency Department at any ti me for re-evaluation. Prescriptions: Permethrin [Elimite] 60 gm TP ONCE PRN #1 cream.gm. PRN Reason: Referrals: JOSE MONTANO PA-C [Primary Care Provider] - Follow up as needed
[2019-10-22] MEDS ORDERED: PERMETHRIN 5% CREAM 60 GM TP SCH (10:00)
== END 2019-10-22 09:40 | disposition home or self-care (01) ==
LOC: ER 09:01
DX: B86 Scabies (principal); I10 Essential (primary) hypertension; J45.909 Unspecified asthma, uncomplicated
CPT/HCPCS: 99282; J7512; J3490